=== PATIENT | female | born 1925 | race Caucasian/White ===

== ENCOUNTER 2016-07-07 15:47 | Inpatient (IN) | payer MEDICARE, OTHER ==
[2016-07-07] MEDS ORDERED: CALTRATE 600 +1 EAC2 PO (16:39)
[2016-07-07] MEDS ORDERED: PRINIVIL20 M1 PO (16:39)
[2016-07-07] MEDS ORDERED: ATIVAN0.5 M1 PO ×2 (16:40→16:41)
[2016-07-07] MEDS ORDERED: LEXAPRO20 M2 PO (16:40)
[2016-07-07] MEDS ORDERED: LEVOTHYROXINE100 MC1 PO (16:40)
[2016-07-07] MEDS ORDERED: LIOTHYRONINE SO5 MC1 PO (16:40)
[2016-07-07] MEDS ORDERED: TYLENOL325 M2 PO (16:41)
[2016-07-07] MEDS ORDERED: MELATONIN3 M4 PO (16:41)
[2016-07-07] MEDS ORDERED: BISCOLAX10 MG PR (16:42)
[2016-07-07] MEDS ORDERED: BUSPIRONE HCL15 M2 PO ×2 (16:42→16:48)
[2016-07-07] MEDS ORDERED: NORVASC5 M2 PO (16:42)
[2016-07-07] MEDS ORDERED: NORCO 5-325 TA1 EACH PO (16:43)
[2016-07-07] MEDS ORDERED: TEMOVATE15 GM TP (16:43)
[2016-07-07] MEDS ORDERED: CORTAID42 GM TP (16:44)
[2016-07-07] MEDS ORDERED: MIRTAZAPINE30 M2 PO (16:45)
[2016-07-07] MEDS ORDERED: MI ACID PO (16:45)
[2016-07-07] MEDS ORDERED: ZOFRAN ODT4 MG PO (16:45)
[2016-07-07] MEDS ORDERED: RANITIDINE HCL150 M3 PO (16:46)
[2016-07-07] MEDS ORDERED: GAVILAX17 G2 PO (16:46)
[2016-07-07] MEDS ORDERED: WELLBUTRIN XL150 M1 PO ×2 (16:47→16:48)
[2016-07-07] MEDS ORDERED: RISPERDAL1 M2 PO (16:47)
[2016-07-07 21:29] LABS: BASO % 0.2 % (0-2); EOSINOPHIL ABSOLUTE COUNT 0.1 tho/cmm (0.0-0.7); HCT-HEMATOCRIT 39.8 % (34.0-49.0); HGB-HEMOGLOBIN 13.3 gm/dl (12.0-15.5); IMMATURE GRANULOCYTES ABSOLUTE 0.02 tho/cmm (0-0.03); IMMATURE GRANULOCYTES PERCENT 0.4 % (0-0.3); LYMPH % 24.9 % (20-45); LYMPH ABSOLUTE COUNT 1.1 tho/cmm (0.8-4.5); MCH (MEAN CORPUSCULAR HGB) 29.9 pg (28.0-32.0); MCHC MEAN CORPUSCULAR HGB CONC 33.4 % (32.0-36.0); MCV (MEAN CELL VOLUME) 89.4 fl (82.0-96.0); MEAN PLATELET VOLUME 9.2 cmc (9.4-12.4); MONO % 11.6 % (0-12); MONOCYTE ABSOLUTE COUNT 0.5 tho/cmm (0.0-1.2); NEUTROPHIL ABSOLUTE COUNT 2.8 tho/cmm (1.6-8.0); NEUTROPHIL-AUTOMATED 2.8 tho/cmm (1.6-8.0); NEUTROPHILS % 60.9 % (40-80); PLATELET COUNT 267 tho/cmm (150-450); RED BLOOD COUNT 4.45 mil/cmm (4.00-5.20); RED CELL DISTRIBUTION WIDTH 13.5 % (12.4-16.4); WHITE BLOOD COUNT 4.6 tho/cmm (4.0-10.0)
[2016-07-07 21:41] LABS: ALKALINE PHOSPHATASE 111 U/L (33-138); ALT/SGPT 17 U/L (12-78); ANION GAP 12 mmol/L (0-20); AST/SGOT 15 U/L (10-40); BILIRUBIN,TOTAL 0.3 mg/dl (0-1.5); BLOOD UREA NITROGEN 11 mg/dl (6-24); CALCIUM 8.5 mg/dl (8.5-10.5); CARBON DIOXIDE-VENOUS 28 mmol/L (22-32); CHLORIDE 107 mmol/l (96-110); CREATININE 0.86 mg/dl (0.50-1.10); GLUCOSE 118 mg/dL (70-110); POTASSIUM 3.6 mmol/L (3.7-5.1); SODIUM 143 mmol/L (135-145); eGFR VALUE FOR BLACK 70 mL/Min
[2016-07-08 04:49] LABS: PROTHROMBIN TIME 11.5 SECONDS (9.0-13.6)
[2016-07-09 07:15] LABS: BASO % 0.1 % (0-2); EOS % 0.1 % (0-7); HCT-HEMATOCRIT 38.2 % (34.0-49.0); HGB-HEMOGLOBIN 12.7 gm/dl (12.0-15.5); IMMATURE GRANULOCYTES ABSOLUTE 0.02 tho/cmm (0-0.03); IMMATURE GRANULOCYTES PERCENT 0.2 % (0-0.3); LYMPH % 11.9 % (20-45); LYMPH ABSOLUTE COUNT 1.1 tho/cmm (0.8-4.5); MCH (MEAN CORPUSCULAR HGB) 29.7 pg (28.0-32.0); MCHC MEAN CORPUSCULAR HGB CONC 33.2 % (32.0-36.0); MCV (MEAN CELL VOLUME) 89.3 fl (82.0-96.0); MEAN PLATELET VOLUME 9.5 cmc (9.4-12.4); MONOCYTE ABSOLUTE COUNT 0.9 tho/cmm (0.0-1.2); NEUTROPHIL ABSOLUTE COUNT 6.9 tho/cmm (1.6-8.0); NEUTROPHIL-AUTOMATED 6.9 tho/cmm (1.6-8.0); NEUTROPHILS % 77.7 % (40-80); PLATELET COUNT 264 tho/cmm (150-450); RED BLOOD COUNT 4.28 mil/cmm (4.00-5.20); RED CELL DISTRIBUTION WIDTH 13.6 % (12.4-16.4)
[2016-07-09 07:20] LABS: WHITE BLOOD COUNT 8.9 tho/cmm (4.0-10.0)
[2016-07-09 07:22] LABS: INR 0.9 INR (0.9-1.1); PROTHROMBIN TIME 10.7 SECONDS (9.0-13.6)
[2016-07-09 07:37] LABS: ALKALINE PHOSPHATASE 118 U/L (33-138); ALT/SGPT 37 U/L (12-78); ANION GAP 13 mmol/L (0-20); AST/SGOT 36 U/L (10-40); BILIRUBIN,TOTAL 0.4 mg/dl (0-1.5); BLOOD UREA NITROGEN 10 mg/dl (6-24); CARBON DIOXIDE-VENOUS 26 mmol/L (22-32); CHLORIDE 111 mmol/l (96-110); CREATININE 0.84 mg/dl (0.50-1.10); GLUCOSE 90 mg/dL (70-110); PHOSPHOROUS 2.7 mg/dl (2.5-4.9); POTASSIUM 3.5 mmol/L (3.7-5.1); SODIUM 146 mmol/L (135-145); eGFR VALUE FOR BLACK 72 mL/Min
[2016-07-09] MEDS ORDERED: CITRUCEL479 GM PO (14:31)
[2016-07-09] MEDS ORDERED: ULTRAM50 M1 PO (14:48)
== END 2016-07-09 15:10 | disposition other institution (70) | DRG 419 ==
LOC: 5WD 15:47 → PACU 07-08 10:44 → 5WD 07-08 11:20
PROVIDERS: Family Medicine; Physician Assistant; ADMIT Family Medicine
PROC: 0FT44ZZ Resection of Gallbladder, Percutaneous Endoscopic Approach (ICD-10-PCS; principal; 2016-07-08)
PROC: 0WQF4ZZ Repair Abdominal Wall, Percutaneous Endoscopic Approach (ICD-10-PCS; 2016-07-08)
PROC: BF12YZZ Fluoroscopy of Gallbladder using Other Contrast (ICD-10-PCS; 2016-07-08)
DX: K80.12 Calculus of gallbladder with acute and chronic cholecystitis without obstruction (principal); I10 Essential (primary) hypertension; E03.9 Hypothyroidism, unspecified; F32.9 Major depressive disorder, single episode, unspecified; F41.9 Anxiety disorder, unspecified; K21.9 Gastro-esophageal reflux disease without esophagitis; K82.8 Other specified diseases of gallbladder; Z66 Do not resuscitate; K42.9 Umbilical hernia without obstruction or gangrene; Z96.659 Presence of unspecified artificial knee joint
CPT/HCPCS: C1894; C9290; J0690; J1956; J2405; J2765; J7030; J7050; Q9966